=== PATIENT | female | born 1945 | race Caucasian/White ===

== ENCOUNTER 2017-08-01 09:18 | Emergency (ER) | payer OTHER ==
[~2017-08-01] VITALS: Ht 162.6 cm; Wt 60.0 kg
[2017-08-01 09:21] VITALS: BP 164/95; PULSE 85; RESP 15; TEMP 98.4; O2SAT 98
--- NOTE | 2017-08-01 09:43 | PD ---
HPI Chief Complaint: Pain: Acute or Chronic Time Seen by Provider: 09:43 Travel History International Travel<30 days: No Contact w/Intl Traveler<30days: No Traveled to known affect area: No History of Present Illness HPI 72-year-old female presents emergency Department with complaint of a rash to her right mid back that wraps around to her right breast. Says she "thinks I have shingles." Denies fever, vomiting. Rash is painful. Denies chest pain, shortness of breath, abdominal pain, nausea, vomiting. Denies new exposure to detergents, lotions, soaps, perfumes, medications, foods, environmental exposures. Has tried some herbal topical medication that her sister gave her for symptom management. Has been taking ibuprofen for symptom management. Allergies to penicillin. Symptoms are moderate in severity. Has no medical complaints. No other modifying factors or associated signs and symptoms. PFSH Past Medical History Diabetes: Yes Social History Tobacco Use: No Allergies-Medications (Allergen,Severity, Reaction): Coded Allergies: Penicillins (Verified Allergy, Mild, rash, 08/01/17) Reported Meds & Prescriptions Reported Meds & Active Scripts Active Lortab (Hydrocodone-Acetaminophen) 5-325 Mg Tab 1-2 Tab PO Q6H PRN Acyclovir 800 Mg Tab 800 Mg PO 5 TIMES A DAY 7 Days Reported Losartan (Losartan Potassium) 25 Mg Tab 25 Mg PO DAILY Pravastatin 40 Mg Tab 40 Mg PO DAILY Metformin (Metformin HCl) 500 Mg Tab 500 Mg PO BIDPC With meals Review of Systems Except as stated in HPI: all other systems reviewed are Neg Physical Exam Narrative GENERAL: Well-nourished, well-developed female patient, in no acute distress; afebrile, nontoxic-appearing SKIN: Warm and dry. Right mid back that wraps around to the right breast with erythremic grouped vesicles present in a dermatomal distribution; some areas are scabbed over. No drainage or edema. HEAD: Atraumatic. Normocephalic. EYES: Pupils equal and round. No scleral icterus. No injection or drainage. ENT: Mucosa pink and moist. Airway patent. NECK: Trachea midline. CARDIOVASCULAR: Regular rate. RESPIRATORY: No accessory muscle use. GASTROINTESTINAL: Flat. MUSCULOSKELETAL: No obvious deformities. No clubbing. No cyanosis. No edema. NEUROLOGICAL: Awake and alert. Oriented 3. No obvious cranial nerve deficits. Motor grossly within normal limits. Normal speech. PSYCHIATRIC: Appropriate mood and affect; insight and judgment normal. Data Data Last Documented VS Vital Signs Date Time Temp Pulse Resp B/P (MAP) Pulse Ox O2 Delivery O2 Flow Rate FiO2 08/01/17 10:07 08/01/17 09:21 98.4 85 15 98 Orders Orders Acetamin-Hydrocod 325-5 Mg ([place] 5-325 (08/01/17 09:45) MDM Medical Decision Making Medical Screen Exam Complete: Yes Emergency Medical Condition: Yes Medical Record Reviewed: Yes Differential Diagnosis Shingles, contact dermatitis, hives Narrative Course 72-year-old female physical exam consistent with shingles rash. Patient is afebrile and nontoxic-appearing. Denies fever, vomiting. Lortab administered in the ER. Acyclovir and Lortab prescriptions were filled and supplied for home. Instructed patient to follow up with primary care provider. Patient verbalizes understanding and agreement with treatment plan. Patient is medically cleared and stable for discharge. Discussed reasons to return to the emergency department. Patient agrees with treatment plan. The patients vital signs are stable and the patient is stable for outpatient follow-up and treatment. Patient discharged home, stable and in no acute distress. Diagnosis Primary Impression: Shingles Qualified Codes: B02.9 - [place] without complications Referrals: Primary Care Physician Patient Instructions: General Instructions, Shingles (ED) Departure Forms: Tests/Procedures, Work Release Enter return to work date: Aug 05, 2017 Additional Instructions: Shingles is contagious Keep area covered with clothing to avoid spreading to others Wash hands frequently Take medications as prescribed Cold, wet compresses to the rash to help relieve itching and pain as needed Cool Bath to help relieve itching and pain as needed Follow-up with a primary care provider Return to the emergency department immediately with worsening of symptoms Med/Other Pt SpecificInfo: Prescription(s) given Scripts Hydrocodone-Acetaminophen (Lortab) 5-325 Mg Tab 1-2 TAB PO Q6H Y for PAIN, #20 TAB 0 Refills Prov: Elisa Raymond 08/01/17 Acyclovir (Acyclovir) 800 Mg Tab 800 MG PO 5 TIMES A DAY for Mgmt Viral Infection for 7 Days, TAB 0 Refills Prov: Elisa Raymond 08/01/17 Disposition: 01 DISCHARGE HOME Condition: Stable Elisa Raymond Aug 01, 2017 09:43
[2017-08-01] MEDS ORDERED: ACETAMINOPHEN/HYDROcodone 325 MG/5 MG TAB PO ONE (09:45)
[2017-08-01] MEDS ORDERED: HYDR-3533 PO (09:46)
[2017-08-01] MEDS ORDERED: ACYC800T PO (09:46)
[2017-08-01] MEDS ORDERED: METF500T PO (10:00)
[2017-08-01] MEDS ORDERED: LOSA25TA PO (10:00)
[2017-08-01] MEDS ORDERED: PRAV40TA2 PO (10:00)
== END 2017-08-01 10:13 | disposition home or self-care (01) ==
LOC: NEPK 09:18
DX: B02.9 Zoster without complications (principal); E11.9 Type 2 diabetes mellitus without complications; Z88.0 Allergy status to penicillin; Z79.899 Other long term (current) drug therapy
CPT/HCPCS: 99284